=== PATIENT | female | born 1995 | race Caucasian/White ===

== ENCOUNTER 2017-08-20 20:00 | Emergency (ER) | payer OTHER ==
[~2017-08-20] VITALS: Ht 165.1 cm; Wt 67.1 kg
[~2017-08-20 20:00] MED LIST: ALLEGRA-D 12 H1 EACH PO; AMOX1TAB12 PO; CEFUROXIME500 MG PO; DICLO GEL 1%-X1 EACH; KETO10TA2 PO; NASONEB NASAL1 EACH NASAL; RELAGESIC TABLE1 TAB PO; ZIPSOR25 MG
[2017-08-21] MEDS ORDERED: KETO10TA2 PO (05:23)
== END 2017-08-21 05:17 | disposition home or self-care (01) ==
LOC: ER 20:00
DX: N92.0 Excessive and frequent menstruation with regular cycle (principal)

== ENCOUNTER 2017-12-11 01:30 | Emergency (ER) | payer OTHER ==
[~2017-12-11] VITALS: Ht 167.6 cm; Wt 81.6 kg
[2017-12-11] MEDS ORDERED: KETO10TA2 PO (05:09)
== END 2017-12-11 05:22 | disposition home or self-care (01) ==
LOC: ER 01:30
DX: S40.011A Contusion of right shoulder, initial encounter (principal); S60.212A Contusion of left wrist, initial encounter; W18.39XA Other fall on same level, initial encounter; Y93.89 Activity, other specified; Y92.488 Other paved roadways as the place of occurrence of the external cause; Y99.8 Other external cause status

== ENCOUNTER 2018-02-15 00:35 | Emergency (ER) | payer OTHER ==
[~2018-02-15] VITALS: Ht 165.1 cm; Wt 83.9 kg
[2018-02-15] MEDS ORDERED: KETO10TA2 PO (06:50)
[2018-02-15] MEDS ORDERED: BUTALB-ACETAMI1 EACH PO (06:50)
== END 2018-02-15 08:23 | disposition home or self-care (01) ==
LOC: ER 00:35
DX: G43.909 Migraine, unspecified, not intractable, without status migrainosus (principal)

== ENCOUNTER → 2018-04-12 | Emergency (ER) | payer OTHER ==
[~2018-04-12] VITALS: Ht 165.1 cm; Wt 73.9 kg
[~2018-04-12] MED LIST changes: +BUTALB-ACETAMI1 EACH PO
== END | disposition home or self-care (01) ==
LOC: ER 20:00
DX: S80.02XA Contusion of left knee, initial encounter (principal); W18.39XA Other fall on same level, initial encounter; Y93.89 Activity, other specified; Y92.69 Other specified industrial and construction area as the place of occurrence of the external cause; Y99.8 Other external cause status

== ENCOUNTER 2018-09-04 03:11 | Emergency (ER) | payer OTHER ==
[~2018-09-04] VITALS: Ht 165.1 cm; Wt 67.1 kg
== END 2018-09-04 11:19 | disposition home or self-care (01) ==
LOC: ER 03:11
DX: G43.109 Migraine with aura, not intractable, without status migrainosus (principal)

== ENCOUNTER 2019-01-12 15:38 | Emergency (ER) | payer OTHER ==
[~2019-01-12] VITALS: Ht 165.1 cm; Wt 63.5 kg
== END 2019-01-12 19:45 | disposition home or self-care (01) ==
LOC: ER 15:38
DX: K52.9 Noninfective gastroenteritis and colitis, unspecified (principal)

== ENCOUNTER 2019-07-29 01:45 | Emergency (ER) | payer OTHER ==
[~2019-07-29] VITALS: Ht 165.1 cm; Wt 66.2 kg
[2019-07-29] MEDS ORDERED: ALLEGRA-D 12 H1 EACH PO (05:18)
[2019-07-29] MEDS ORDERED: ZITHROMAX500 MG PO (05:18)
[2019-07-29] MEDS ORDERED: ZYNCOF 20-400120 ML PO (05:19)
== END 2019-07-29 05:26 | disposition home or self-care (01) ==
LOC: ER 01:45
DX: J06.9 Acute upper respiratory infection, unspecified (principal)

== ENCOUNTER 2019-09-01 02:13 | Emergency (ER) | payer OTHER ==
[~2019-09-01] VITALS: Ht 165.1 cm; Wt 67.1 kg
[~2019-09-01 02:13] MED LIST changes: +ZITHROMAX500 MG PO; +ZYNCOF 20-400120 ML PO
[2019-09-01] MEDS ORDERED: LOTRISONE CREAM45 GM TOP (02:57)
[2019-09-01] MEDS ORDERED: CLARITIN10 MG PO (02:57)
[2019-09-01] MEDS ORDERED: MEDROLPACK PO (02:58)
== END 2019-09-01 03:11 | disposition home or self-care (01) ==
LOC: ER 02:13
DX: R21 Rash and other nonspecific skin eruption (principal)

== ENCOUNTER 2019-11-11 23:01 | Emergency (ER) | payer OTHER ==
[~2019-11-11] VITALS: Ht 165.1 cm; Wt 81.6 kg
[~2019-11-11 23:01] MED LIST changes: +CLARITIN10 MG PO; +LOTRISONE CREAM45 GM TOP; +MEDROLPACK PO
== END 2019-11-12 02:10 | disposition home or self-care (01) ==
LOC: ER 23:01
DX: R10.13 Epigastric pain (principal)

== ENCOUNTER 2020-02-14 20:58 | Emergency (ER) | payer OTHER ==
[~2020-02-14] VITALS: Ht 165.1 cm; Wt 81.6 kg
== END 2020-02-14 23:38 | disposition home or self-care (01) ==
LOC: ER 20:58
DX: M62.838 Other muscle spasm (principal); M54.2 Cervicalgia

== ENCOUNTER 2020-10-05 00:08 | Emergency (ER) | payer OTHER ==
[~2020-10-05] VITALS: Ht 165.1 cm; Wt 83.5 kg
[2020-10-05] MEDS ORDERED: KETO10TA2 PO (08:47)
== END 2020-10-05 09:15 ==
LOC: ER 00:08
DX: R10.2 Pelvic and perineal pain (principal)

== ENCOUNTER 2021-01-16 08:38 | Emergency (ER) | payer OTHER ==
[~2021-01-16] VITALS: Ht 170.2 cm; Wt 82.6 kg
[2021-01-16] MEDS ORDERED: NORFLEX100MG PO (12:46)
[2021-01-16] MEDS ORDERED: KETO10TA2 PO (12:46)
== END 2021-01-16 13:24 | disposition home or self-care (01) ==
LOC: ER 08:38
DX: M54.5 Low back pain (principal); G89.11 Acute pain due to trauma